=== PATIENT | female | born 1955 | race Caucasian/White ===

== ENCOUNTER → 2016-11-01 | Outpatient (CLI) | payer OTHER ==
--- NOTE | 2016-11-01 16:16 | DX ---
Left Hip, Two Views November 01, 2016 1517 hours Indication: Fall, pain. Comparison: None relevant. Findings: There are mild arthritic changes at both hip joints, the pubic symphysis, and both SI joint s. No evidence of fracture. Soft tissues are unremarkable. Moderate amount of stool is noted throughout the visualized bowel. Radiopaque object is noted on the abdomen. Impression: Mild to moderate arthritic changes without evidence of fracture.
== END ==
LOC: BMCIMAGING 15:20
PROVIDERS: ATTEND Family Medicine
DX: M25.552 Pain in left hip (principal)

== ENCOUNTER → 2017-01-11 | Outpatient (CLI) | payer OTHER | LOC: FIMAGING 09:44 | DX: Z12.31 Encounter for screening mammogram for malignant neoplasm of breast (principal); Z80.3 Family history of malignant neoplasm of breast | CPT/HCPCS: G0202 ==

== ENCOUNTER → 2018-02-15 | Outpatient (CLI) | payer OTHER | LOC: FIMAGING 09:30 | PROVIDERS: ATTEND Internal Medicine | DX: Z12.31 Encounter for screening mammogram for malignant neoplasm of breast (principal); Z80.3 Family history of malignant neoplasm of breast ==

== ENCOUNTER → 2018-09-29 | Outpatient (CLI) | payer OTHER | LOC: CIMAGING 09:52 | PROVIDERS: ATTEND Family Medicine | DX: L02.91 Cutaneous abscess, unspecified (principal) | CPT/HCPCS: 73140-PO ==

== ENCOUNTER → 2019-02-20 | Outpatient (CLI) | payer OTHER | LOC: FIMAGING 11:11 | PROVIDERS: ATTEND Internal Medicine | DX: Z12.31 Encounter for screening mammogram for malignant neoplasm of breast (principal); Z80.3 Family history of malignant neoplasm of breast ==